=== PATIENT | female | born 1985 | race African-American/Black ===

== ENCOUNTER 2017-05-18 21:48 | Emergency (ER) | payer OTHER ==
[~2017-05-18] VITALS: Ht 170.2 cm; Wt 63.5 kg
[2017-05-18] MEDS ORDERED: ONDANSETRON HCL 4MG/2ML VIAL IV STA (23:34)
[2017-05-18] MEDS ORDERED: MAGNESIUM/ALUMINUM HYDROXIDE/SIMETHICONE 30ML UDC PO STA (23:34)
[2017-05-18] MEDS ORDERED: SODIUM CHLORIDE 0.9% 1,000 ML IV ONE (23:34)
[2017-05-18] MEDS ORDERED: KETOROLAC 30MG/ML VIAL IV STA (23:34)
[2017-05-19 00:01] LABS: BASOPHILS % 1.1 % (0.0-2.0); EOSINOPHILS % 0.6 % (0.0-5.0); HEMATOCRIT. 38.3 % (36.0-48.0); LYMPHOCYTES % 30.6 % (20.0-50.0); MEAN CORPUSCULAR HEMOGLOBIN 31.9 pg (28.0-32.0); MEAN CORPUSCULAR VOLUME 94.3 fL (81.0-99.0); MEAN PLATELET VOLUME 8.4 fl (7.4-10.4); MONOCYTES % 4.8 % (2.0-8.0); NEUTROPHILS % 62.9 % (40.0-76.0); PLATELET 260 x1000/uL (130-400); RED BLOOD CELL COUNT 4.06 mill/uL (4.2-5.4); RED CELL DISTRIBUTION WIDTH 13.9 % (11.6-14.6)
[2017-05-19 00:12] LABS: *AMPHETAMINES SCREEN URINE NEGATIVE (NEGATIVE); *BARBITURATES SCREEN URINE NEGATIVE (NEGATIVE); *BENZODIAZEPINES SCREEN URINE NEGATIVE (NEGATIVE); METHADONE URINE SCREEN NEGATIVE (NEGATIVE); OPIATES URINE SCREEN NEGATIVE (NEGATIVE); PHENCYCLIDINE URINE SCREEN NEGATIVE (NEGATIVE)
[2017-05-19 00:15] LABS: *COCAINE SCREEN URINE PRESUMTIVE POSITIVE (NEGATIVE); CANNABINOID URINE SCREEN PRESUMTIVE POSITIVE (NEGATIVE)
[2017-05-19 00:18] LABS: CARBON DIOXIDE 26 mEq/L (21-32); CHLORIDE 104 mEq/L (98-107); ETHANOL BLOOD 106 mg/dL; TROPONIN I < 0.02 ng/mL (0.00-0.04)
[2017-05-19] MEDS ORDERED: MORPHINE SULFATE 4 MG/ML CPJ (NOT FOR IM USE) IV ONE (04:00)
[2017-05-19 06:51] VITALS: BP 119/84
[2017-05-19] MEDS ORDERED: SODIUM CHLORIDE 0.9% 10ML VIAL ONE (14:21)
[2017-05-19] MEDS ORDERED: IOHEXOL-350 100 ML BOTTLE ONE (14:21)
== END 2017-05-19 07:06 | disposition home or self-care (01) ==
LOC: ER 22:28
DX: R07.2 Precordial pain (principal); F17.200 Nicotine dependence, unspecified, uncomplicated; F12.10 Cannabis abuse, uncomplicated
CPT/HCPCS: 36415; 71010; 71275; 80053; 80305; 81025; 83690; 84484; 85025; 85379; 93005; 96361; 96374; 96375; 99285; A4216; G0482; J1885; J2270; J2405; J7030; Q9967; Z7610